=== PATIENT | male | born 1960 | race Caucasian/White ===

== ENCOUNTER 2019-03-07 20:26 | Emergency (ER) | payer OTHER ==
[~2019-03-07] VITALS: Ht 185.4 cm; Wt 113.6 kg
[2019-03-07 23:15] VITALS: BP 131/81
--- NOTE | 2019-03-07 23:18 | NUR ---
Provider ELTON Miller is with the patient this time.
== END 2019-03-07 23:55 | disposition home or self-care (01) ==
LOC: ER 20:27
DX: S76.112A Strain of left quadriceps muscle, fascia and tendon, initial encounter (principal); W20.8XXA Other cause of strike by thrown, projected or falling object, initial encounter; Y93.89 Activity, other specified; Y92.89 Other specified places as the place of occurrence of the external cause; Y99.0 Civilian activity done for income or pay
CPT/HCPCS: 29505; 99283